=== PATIENT | female | born 1970 | race African-American/Black ===

== ENCOUNTER 2016-11-07 00:41 | Emergency (ER) | payer MEDICAID ==
[~2016-11-07] VITALS: Ht 160 cm; Wt 99.0 kg
[~2016-11-07 00:41] MED LIST: ALD50 PO; AMLO5TAB4 PO; LISI-604 PO
[2016-11-07] MEDS ORDERED: ASPIRIN 81MG TABLET PO STA (01:36)
[2016-11-07] MEDS ORDERED: ONDANSETRON HCL 4MG/2ML VIAL IV STA (01:36)
[2016-11-07] MEDS ORDERED: MORPHINE SULFATE 4 MG/ML CPJ (NOT FOR IM USE) IV STA (01:36)
[2016-11-07 01:51] LABS: BASOPHILS % 1.4 % (0.0-2.0); EOSINOPHILS % 1.2 % (0.0-5.0); HEMATOCRIT. 32.1 % (36.0-48.0); HEMOGLOBIN. 10.7 g/dL (12.0-16.0); LYMPHOCYTES % 32.3 % (20.0-50.0); MEAN CORPUSCULAR HEMOGLOBIN 32.8 pg (28.0-32.0); MEAN PLATELET VOLUME 7.7 fl (7.4-10.4); MONOCYTES % 6.1 % (2.0-8.0); PLATELET 247 x1000/uL (130-400); RED BLOOD CELL COUNT 3.27 mill/uL (4.2-5.4); RED CELL DISTRIBUTION WIDTH 16.8 % (11.6-14.6)
[2016-11-07 02:03] LABS: CARBON DIOXIDE 26 mEq/L (21-32); CHLORIDE 103 mEq/L (98-107); TROPONIN I < 0.02 ng/mL (0.00-0.04)
[2016-11-07 05:47] VITALS: BP 164/66
== END 2016-11-07 05:50 | disposition home or self-care (01) ==
LOC: ER 00:41
DX: R07.89 Other chest pain (principal); I11.0 Hypertensive heart disease with heart failure; I50.9 Heart failure, unspecified; Z79.899 Other long term (current) drug therapy
CPT/HCPCS: 36415; 71010; 80053; 84484; 85025; 85379; 93005; 96374; 96375; 99285; J2270; J2405; Z7610

== ENCOUNTER 2018-11-12 14:23 | Emergency (ER) | payer MEDICAID | END 2018-11-12 18:00 | disposition left against medical advice (07) | LOC: ER 17:15 | DX: Z53.21 Procedure and treatment not carried out due to patient leaving prior to being seen by health care provider (principal) ==

== ENCOUNTER 2019-04-05 01:26 | Emergency (ER) | payer MEDICAID ==
[~2019-04-05] VITALS: Ht 162.6 cm; Wt 91.0 kg
[2019-04-05] MEDS ORDERED: FAMOTIDINE 20MG/2ML VIAL IV STA (02:04)
[2019-04-05] MEDS ORDERED: SODIUM CHLORIDE 0.9% 1,000 ML IV ONE (02:04)
[2019-04-05] MEDS ORDERED: ONDANSETRON HCL 4MG/2ML INJ IV STA (02:04)
[2019-04-05] MEDS ORDERED: MORPHINE SULFATE 4 MG/ML CPJ (NOT FOR IM USE) IV STA (02:04)
[2019-04-05 02:57] LABS: BASOPHILS % 1.1 % (0.0-2.0); EOSINOPHILS % 0.5 % (0.0-5.0); HEMATOCRIT. 37.3 % (36.0-48.0); HEMOGLOBIN. 12.6 g/dL (12.0-16.0); LYMPHOCYTES % 26.3 % (20.0-50.0); MEAN CORPUSCULAR HEMOGLOBIN 35.5 pg (28.0-32.0); MEAN CORPUSCULAR VOLUME 104.9 fL (81.0-99.0); MEAN PLATELET VOLUME 7.8 fl (7.4-10.4); NEUTROPHILS % 66.1 % (40.0-76.0); PLATELET 233 x1000/uL (130-400); RED BLOOD CELL COUNT 3.56 mill/uL (4.2-5.4); RED CELL DISTRIBUTION WIDTH 13.6 % (11.6-14.6)
[2019-04-05 03:04] LABS: CHLORIDE 102 mEq/L (98-107)
[2019-04-05] MEDS ORDERED: IOHEXOL-300 100 ML BOTTLE ONE (03:42)
[2019-04-05 05:08] VITALS: BP 106/66
== END 2019-04-05 05:12 | disposition home or self-care (01) ==
LOC: ER 01:26
DX: K52.9 Noninfective gastroenteritis and colitis, unspecified (principal); I11.0 Hypertensive heart disease with heart failure; I50.9 Heart failure, unspecified; Z79.899 Other long term (current) drug therapy
CPT/HCPCS: 36415; 71045; 74177; 80053; 83605; 83690; 85025; 93005; 96361; 96374; 96375; 99284; J2270; J2405; J3490; J7030; Q9967

== ENCOUNTER 2020-09-27 23:37 | Emergency (ER) | payer MEDICAID, OTHER ==
[~2020-09-27] VITALS: Ht 167.6 cm; Wt 75.0 kg
[~2020-09-27 23:37] MED LIST changes: -ALD50 PO; +ALLO100T MT; -AMLO5TAB4 PO; +ASPI-1497 PO; +CELE200C PO; +FURO40TA5 PO; +HYDR12.54 MT; +LEVO500T89 MT; -LISI-604 PO
[2020-09-28 01:07] LABS: CHLORIDE 97 mEq/L (98-107)
[2020-09-28 01:23] LABS: ETHANOL BLOOD 456 mg/dL
[2020-09-28 01:24] LABS: CLARITY URINE CLOUDY (CLEAR); COLOR URINE YELLOW (YELLOW); KETONES URINE TRACE (NEGATIVE); LEUKOCYTE ESTERASE URINE 3+ (NEGATIVE); NITRITE URINE NEGATIVE (NEGATIVE); OCCULT BLOOD URINE 1+ (NEGATIVE); PROTEIN URINE NEGATIVE (NEGATIVE); SPECIFIC GRAVITY URINE 1.009 (1.005-1.030)
[2020-09-28 01:33] LABS: *AMPHETAMINES SCREEN URINE NEGATIVE (NEGATIVE)
[2020-09-28 01:34] LABS: *BARBITURATES SCREEN URINE NEGATIVE (NEGATIVE); *BENZODIAZEPINES SCREEN URINE NEGATIVE (NEGATIVE); *COCAINE SCREEN URINE NEGATIVE (NEGATIVE); CANNABINOID URINE SCREEN NEGATIVE (NEGATIVE); METHADONE URINE SCREEN NEGATIVE (NEGATIVE); PHENCYCLIDINE URINE SCREEN NEGATIVE (NEGATIVE)
[2020-09-28 01:35] LABS: OPIATES URINE SCREEN NEGATIVE (NEGATIVE)
[2020-09-28 01:44] LABS: BASOPHILS % 2.2 % (0.0-2.0); EOSINOPHILS % 0.4 % (0.0-5.0); HEMATOCRIT. 28.2 % (36.0-48.0); HEMOGLOBIN. 9.4 g/dL (12.0-16.0); LYMPHOCYTES % 36.9 % (20.0-50.0); MEAN CORPUSCULAR HEMOGLOBIN 34.2 pg (28.0-32.0); MEAN CORPUSCULAR VOLUME 102.1 fL (81.0-99.0); MONOCYTES % 7.2 % (2.0-8.0); NEUTROPHILS % 53.3 % (40.0-76.0); PLATELET 133 x1000/uL (130-400); RED BLOOD CELL COUNT 2.76 mill/uL (4.2-5.4); RED CELL DISTRIBUTION WIDTH 22.2 % (11.6-14.6)
[2020-09-28 01:56] LABS: PLATELET ESTIMATE NORMAL
[2020-09-28] MEDS ORDERED: CEFTRIAXONE 1 G PREMIX 50 ML IV SCH (02:15)
[2020-09-28 03:15] VITALS: BP 121/74
== END 2020-09-28 03:30 | disposition home or self-care (01) ==
LOC: ER 23:37
DX: I11.0 Hypertensive heart disease with heart failure (principal); I50.9 Heart failure, unspecified; F10.129 Alcohol abuse with intoxication, unspecified; Z79.899 Other long term (current) drug therapy; Z79.82 Long term (current) use of aspirin; Y90.8 Blood alcohol level of 240 mg/100 ml or more
CPT/HCPCS: 36415; 70450; 71045; 80053; 80305; 80320; 81003; 82962; 83690; 84484; 85025; 87086; 93005; 96374; 99285; J0696; Z7610; G0480

== ENCOUNTER 2020-10-09 01:04 | Inpatient (IN) | payer MEDICAID, OTHER ==
[~2020-10-09] VITALS: Ht 160 cm; Wt 80.5 kg
[2020-10-09] MEDS ORDERED: MORPHINE SULFATE 4 MG/ML CPJ (NOT FOR IM USE) IV STA (03:13)
[2020-10-09] MEDS ORDERED: ONDANSETRON HCL 4MG/2ML INJ IV STA (03:13)
[2020-10-09] MEDS ORDERED: ASPIRIN 81MG TABLET PO ONE (03:15)
[2020-10-09] MEDS ORDERED: NITROGLYCERIN OINT 1GM/INCH UDPKT TD ONE (03:15)
[2020-10-09] MEDS ORDERED: FUROSEMIDE 40MG/4ML VIAL IV ONE (03:15)
[2020-10-09 03:33] LABS: EOSINOPHILS % 0.4 % (0.0-5.0); HEMATOCRIT. 24.2 % (36.0-48.0); LYMPHOCYTES % 14.5 % (20.0-50.0); MEAN CORPUSCULAR HEMOGLOBIN 34.5 pg (28.0-32.0); MEAN CORPUSCULAR VOLUME 105.1 fL (81.0-99.0); MEAN PLATELET VOLUME 8.2 fl (7.4-10.4); MONOCYTES % 14.9 % (2.0-8.0); NEUTROPHILS % 69.2 % (40.0-76.0); PLATELET 200 x1000/uL (130-400); RED CELL DISTRIBUTION WIDTH 22.4 % (11.6-14.6)
[2020-10-09 03:37] LABS: CHLORIDE 102 mEq/L (98-107)
[2020-10-09] MEDS ORDERED: MORPHINE SULFATE 2 MG/ML CPJ (NOT FOR IM USE) IV PRN (12:45)
[2020-10-09] MEDS ORDERED: ONDANSETRON HCL 4MG/2ML INJ IV PRN (18:15)
[2020-10-09] MEDS ORDERED: TRAMADOL 50MG TABLET PO PRN (18:15)
[2020-10-09] MEDS: FUROSEMIDE 40MG/4ML VIAL IVP SCH (19:11)
[2020-10-09 21:31] VITALS: BP 129/87
[2020-10-09] MEDS ORDERED: FOLI-43 PO (22:37)
[2020-10-09] MEDS ORDERED: LISI20TA31 PO (22:40)
[2020-10-09] MEDS ORDERED: *PATIENT'S OWN MEDICATION STORAGE XX SCH (23:45)
[2020-10-10] VITALS: BP 121/79
[2020-10-10 04:00] VITALS: BP 119/81
[2020-10-10 08:00] VITALS: BP 121/81
[2020-10-10] MEDS: FUROSEMIDE 40MG/4ML VIAL IVP SCH (08:43)
[2020-10-10 12:00] VITALS: BP 129/74
[2020-10-10] MEDS ORDERED: POTASSIUM CHLORIDE 20MEQ TABLET SR PO NR (12:00)
[2020-10-10] MEDS: METOPROLOL TARTRATE 25MG TABLET PO SCH ×2 (12:18→16:55)
[2020-10-10] MEDS: ACETAMINOPHEN 325MG TABLET PO PRN (12:18)
[2020-10-10] MEDS: CEFTRIAXONE 1,000 MG in DEXTROSE 5% WATER 50 ML IV SCH (13:38)
[2020-10-10 14:27] LABS: BASOPHILS % 0.7 % (0.0-2.0); EOSINOPHILS % 0.2 % (0.0-5.0); HEMATOCRIT. 22.2 % (36.0-48.0); HEMOGLOBIN. 7.4 g/dL (12.0-16.0); LYMPHOCYTES % 10.7 % (20.0-50.0); MEAN CORPUSCULAR HEMOGLOBIN 34.7 pg (28.0-32.0); MEAN PLATELET VOLUME 8.4 fl (7.4-10.4); MONOCYTES % 14.5 % (2.0-8.0); NEUTROPHILS % 73.9 % (40.0-76.0); PLATELET 229 x1000/uL (130-400); RED BLOOD CELL COUNT 2.14 mill/uL (4.2-5.4); RED CELL DISTRIBUTION WIDTH 21.4 % (11.6-14.6)
[2020-10-10 16:00] VITALS: BP 97/65
[2020-10-10] MEDS ORDERED: CALCIUM GLUCONATE 1GM PREMIX 50 ML IV NR (17:00)
[2020-10-10 20:00] VITALS: BP 113/81
[2020-10-10] MEDS: HYDROCODONE/ACETAMINOPHEN 10/325MG TABLET PO PRN (20:43)
[2020-10-10] MEDS ORDERED: ZOLPIDEM TARTRATE 5MG TABLET PO PRN (21:00)
[2020-10-10] MEDS: LORAZEPAM 2MG/ML CPJ IV PRN (22:07)
[2020-10-11] VITALS: BP 115/78
[2020-10-11 04:00] VITALS: BP 124/79
[2020-10-11] MEDS: LORAZEPAM 2MG/ML CPJ IV PRN (04:02)
[2020-10-11 08:00] VITALS: BP 109/73
[2020-10-11] MEDS: METOPROLOL TARTRATE 25MG TABLET PO SCH ×2 (09:00→16:55)
[2020-10-11] MEDS: FUROSEMIDE 40MG/4ML VIAL IVP SCH (10:37)
[2020-10-11] MEDS: ACETAMINOPHEN 325MG TABLET PO PRN (10:37)
[2020-10-11 12:00] VITALS: BP 109/70
[2020-10-11] MEDS: CEFTRIAXONE 1,000 MG in DEXTROSE 5% WATER 50 ML IV SCH (14:22)
[2020-10-11 15:59] LABS: BASOPHILS % 0.9 % (0.0-2.0); EOSINOPHILS % 0.1 % (0.0-5.0); HEMATOCRIT. 25.9 % (36.0-48.0); HEMOGLOBIN. 8.6 g/dL (12.0-16.0); LYMPHOCYTES % 12.4 % (20.0-50.0); MEAN CORPUSCULAR HEMOGLOBIN 34.9 pg (28.0-32.0); MEAN CORPUSCULAR VOLUME 104.9 fL (81.0-99.0); MEAN PLATELET VOLUME 8.3 fl (7.4-10.4); MONOCYTES % 13.2 % (2.0-8.0); NEUTROPHILS % 73.4 % (40.0-76.0); PLATELET 280 x1000/uL (130-400); RED BLOOD CELL COUNT 2.47 mill/uL (4.2-5.4); RED CELL DISTRIBUTION WIDTH 21.3 % (11.6-14.6)
[2020-10-11 16:00] VITALS: BP 121/77
[2020-10-11] MEDS ORDERED: CALCIUM GLUCONATE 1GM PREMIX 50 ML IV ONE (18:00)
[2020-10-11 20:00] VITALS: BP 119/76
[2020-10-12] VITALS: BP 103/51
[2020-10-12] MEDS: HYDROCODONE/ACETAMINOPHEN 10/325MG TABLET PO PRN (02:40)
[2020-10-12 02:44] LABS: CLARITY URINE CLOUDY (CLEAR); COLOR URINE YELLOW (YELLOW); KETONES URINE TRACE (NEGATIVE); LEUKOCYTE ESTERASE URINE 3+ (NEGATIVE); NITRITE URINE NEGATIVE (NEGATIVE); OCCULT BLOOD URINE TRACE (NEGATIVE); PROTEIN URINE TRACE (NEGATIVE); SPECIFIC GRAVITY URINE 1.013 (1.005-1.030)
[2020-10-12 03:02] LABS: PHENCYCLIDINE URINE SCREEN NEGATIVE (NEGATIVE)
[2020-10-12 03:03] LABS: *AMPHETAMINES SCREEN URINE NEGATIVE (NEGATIVE); *BARBITURATES SCREEN URINE NEGATIVE (NEGATIVE); *COCAINE SCREEN URINE NEGATIVE (NEGATIVE); CANNABINOID URINE SCREEN NEGATIVE (NEGATIVE); METHADONE URINE SCREEN NEGATIVE (NEGATIVE); OPIATES URINE SCREEN PRESUMTIVE POSITIVE (NEGATIVE)
[2020-10-12 03:14] LABS: *BENZODIAZEPINES SCREEN URINE NEGATIVE (NEGATIVE)
[2020-10-12 04:00] VITALS: BP 117/71
[2020-10-12 08:00] VITALS: BP 115/73
[2020-10-12] MEDS: METOPROLOL TARTRATE 25MG TABLET PO SCH ×2 (09:17→18:57)
[2020-10-12] MEDS: POTASSIUM CHLORIDE 20MEQ TABLET SR PO SCH (09:17)
[2020-10-12] MEDS: FUROSEMIDE 40MG/4ML VIAL IVP SCH (09:17)
[2020-10-12 10:47] LABS: BASOPHILS % 0.8 % (0.0-2.0); EOSINOPHILS % 0.4 % (0.0-5.0); LYMPHOCYTES % 12.6 % (20.0-50.0); MEAN CORPUSCULAR HEMOGLOBIN 34.7 pg (28.0-32.0); MEAN CORPUSCULAR VOLUME 104.6 fL (81.0-99.0); MONOCYTES % 12.1 % (2.0-8.0); NEUTROPHILS % 74.1 % (40.0-76.0); PLATELET 315 x1000/uL (130-400); RED BLOOD CELL COUNT 2.11 mill/uL (4.2-5.4); RED CELL DISTRIBUTION WIDTH 21.3 % (11.6-14.6)
[2020-10-12 10:54] LABS: HEMOGLOBIN. 7.3 g/dL (12.0-16.0)
[2020-10-12 10:55] LABS: HEMATOCRIT. 22.1 % (36.0-48.0)
[2020-10-12] MEDS ORDERED: CALCIUM GLUCONATE 1GM PREMIX 50 ML IV ONE (11:15)
[2020-10-12 12:00] VITALS: BP 101/85
[2020-10-12] MEDS: CEFTRIAXONE 1,000 MG in DEXTROSE 5% WATER 50 ML IV SCH (14:15)
[2020-10-12 15:35] LABS: TOTAL IRON BINDING CAPACITY 154 ug/dL (250-450)
[2020-10-12 16:00] VITALS: BP 99/85
[2020-10-12] MEDS ORDERED: FOLIC ACID 1 MG, THIAMINE HCL 100 MG, MVI, ADULT NO.1 10 ML in DEXTROSE 5% WATER 1,000 ML IV ONE (19:45)
[2020-10-12] MEDS ORDERED: FOLIC ACID 1 MG, THIAMINE HCL 100 MG, MVI, ADULT NO.1 10 ML in DEXTROSE 5% WATER 1,000 ML IV NR (21:00)
[2020-10-12] MEDS ORDERED: LORAZEPAM 2MG/ML CPJ IV PRN (22:15)
[2020-10-13] VITALS (7 sets, daily range): BP systolic 89–114; BP diastolic 49–79
[2020-10-13] MEDS: FUROSEMIDE 40MG/4ML VIAL IVP SCH (09:38)
[2020-10-13] MEDS: THIAMINE HCL 100MG TABLET PO SCH (09:39)
[2020-10-13] MEDS: FOLIC ACID/VITAMIN B COMP W-C TABLET PO SCH (09:42)
[2020-10-13] MEDS: METOPROLOL TARTRATE 25MG TABLET PO SCH ×2 (09:43→17:00)
[2020-10-13] MEDS: POTASSIUM CHLORIDE 20MEQ TABLET SR PO SCH (09:45)
[2020-10-13 12:17] LABS: BASOPHILS % 0.9 % (0.0-2.0); EOSINOPHILS % 0.6 % (0.0-5.0); HEMATOCRIT. 21.4 % (36.0-48.0); HEMOGLOBIN. 7.2 g/dL (12.0-16.0); LYMPHOCYTES % 17.6 % (20.0-50.0); MEAN CORPUSCULAR HEMOGLOBIN 34.3 pg (28.0-32.0); MEAN CORPUSCULAR VOLUME 102.5 fL (81.0-99.0); MEAN PLATELET VOLUME 8.5 fl (7.4-10.4); MONOCYTES % 10.4 % (2.0-8.0); NEUTROPHILS % 70.5 % (40.0-76.0); PLATELET 365 x1000/uL (130-400); RED BLOOD CELL COUNT 2.09 mill/uL (4.2-5.4)
[2020-10-13] MEDS: FERROUS SULFATE 325MG TABLET PO SCH ×2 (12:45→18:26)
[2020-10-13] MEDS: HYDROCODONE/ACETAMINOPHEN 10/325MG TABLET PO PRN (12:46)
[2020-10-13] MEDS: CHLORDIAZEPOXIDE 25MG CAPSULE PO SCH ×2 (13:09→21:05)
[2020-10-13] MEDS: CEFTRIAXONE 1,000 MG in DEXTROSE 5% WATER 50 ML IV SCH (13:37)
[2020-10-13] MEDS ORDERED: CALCIUM GLUCONATE 1GM PREMIX 50 ML IV NR (16:00)
[2020-10-13] MEDS ORDERED: LORAZEPAM 2MG/ML CPJ IV PRN (18:30)
[2020-10-13 21:12] LABS: FOLIC ACID (FOLATE) SERUM > 20.00 ng/mL (>5.38)
[2020-10-13] MEDS: ACETAMINOPHEN 325MG TABLET PO PRN (21:17)
[2020-10-13 21:20] LABS: VITAMIN B12 SERUM 378 pg/mL (211-911)
[2020-10-14] VITALS: BP_SYST 111; BP_SYST 117; BP_DIAS 75; BP_DIAS 80
[2020-10-14 04:00] VITALS: BP 118/76
[2020-10-14] MEDS: CHLORDIAZEPOXIDE 25MG CAPSULE PO SCH ×3 (05:01→21:21)
[2020-10-14 06:01] LABS: BASOPHILS % 1.5 % (0.0-2.0); HEMOGLOBIN. 7.4 g/dL (12.0-16.0); MEAN CORPUSCULAR HEMOGLOBIN 33.6 pg (28.0-32.0); MEAN CORPUSCULAR VOLUME 104.6 fL (81.0-99.0); MEAN PLATELET VOLUME 8.5 fl (7.4-10.4); MONOCYTES % 10.4 % (2.0-8.0); NEUTROPHILS % 68.1 % (40.0-76.0); PLATELET 322 x1000/uL (130-400); RED BLOOD CELL COUNT 2.19 mill/uL (4.2-5.4)
[2020-10-14 06:04] LABS: INR 1.2; PROTHROMBIN TIME 12.4 sec (9.6-11.0)
[2020-10-14] MEDS ORDERED: CALCIUM GLUCONATE 1GM PREMIX 50 ML IV ONE ×5 (07:45→15:00)
[2020-10-14 08:00] VITALS: BP 105/65
[2020-10-14] MEDS ORDERED: MAGNESIUM 4 G PREMIX 100 ML IV ONE (09:00)
[2020-10-14] MEDS: METOPROLOL TARTRATE 25MG TABLET PO SCH ×2 (09:00→16:46)
[2020-10-14] MEDS: DOCUSATE SODIUM SUGAR FREE 100MG/10ML UDC PO SCH (09:05)
[2020-10-14] MEDS: FERROUS SULFATE 325MG TABLET PO SCH ×3 (09:06→17:40)
[2020-10-14] MEDS: FOLIC ACID/VITAMIN B COMP W-C TABLET PO SCH (09:06)
[2020-10-14] MEDS: THIAMINE HCL 100MG TABLET PO SCH (09:06)
[2020-10-14] MEDS: POTASSIUM CHLORIDE 20MEQ TABLET SR PO SCH (09:08)
[2020-10-14 12:00] VITALS: BP 108/82
[2020-10-14] MEDS: ACETAMINOPHEN 325MG TABLET PO PRN (12:34)
[2020-10-14] MEDS: CEFTRIAXONE 1,000 MG in DEXTROSE 5% WATER 50 ML IV SCH (14:14)
[2020-10-14 16:00] VITALS: BP 93/62
[2020-10-14] MEDS: MEROPENEM 1,000 MG in SODIUM CHLORIDE 0.9% 100 ML IV SCH (18:35)
[2020-10-14 20:00] VITALS: BP 124/79
[2020-10-14 20:54] LABS: PLATELET ESTIMATE NORMAL
[2020-10-14] MEDS: HYDROCODONE/ACETAMINOPHEN 10/325MG TABLET PO PRN (21:22)
[2020-10-15] VITALS: BP 117/80
[2020-10-15 04:00] VITALS: BP 128/83
[2020-10-15] MEDS: MEROPENEM 1,000 MG in SODIUM CHLORIDE 0.9% 100 ML IV SCH ×2 (05:04→17:38)
[2020-10-15] MEDS: CHLORDIAZEPOXIDE 25MG CAPSULE PO SCH ×3 (05:04→20:50)
[2020-10-15 05:33] LABS: BASOPHILS % 1.3 % (0.0-2.0); EOSINOPHILS % 1.9 % (0.0-5.0); HEMATOCRIT. 22.7 % (36.0-48.0); HEMOGLOBIN. 7.5 g/dL (12.0-16.0); MEAN CORPUSCULAR HEMOGLOBIN 34.4 pg (28.0-32.0); MEAN CORPUSCULAR VOLUME 103.7 fL (81.0-99.0); MEAN PLATELET VOLUME 8.4 fl (7.4-10.4); MONOCYTES % 10.1 % (2.0-8.0); NEUTROPHILS % 74.7 % (40.0-76.0); PLATELET 377 x1000/uL (130-400); RED BLOOD CELL COUNT 2.19 mill/uL (4.2-5.4); RED CELL DISTRIBUTION WIDTH 22.2 % (11.6-14.6)
[2020-10-15 08:00] VITALS: BP 92/59
[2020-10-15] MEDS ORDERED: CALCIUM GLUCONATE 2,000 MG in DEXT 5% WATER 100 ML IV SCH (08:00)
[2020-10-15] MEDS: METOPROLOL TARTRATE 25MG TABLET PO SCH ×2 (08:11→17:37)
[2020-10-15] MEDS: FERROUS SULFATE 325MG TABLET PO SCH ×3 (08:15→17:37)
[2020-10-15] MEDS: DOCUSATE SODIUM SUGAR FREE 100MG/10ML UDC PO SCH (08:15)
[2020-10-15] MEDS: FOLIC ACID/VITAMIN B COMP W-C TABLET PO SCH (08:15)
[2020-10-15] MEDS: THIAMINE HCL 100MG TABLET PO SCH (08:15)
[2020-10-15] MEDS: POTASSIUM CHLORIDE 20MEQ TABLET SR PO SCH (08:16)
[2020-10-15] MEDS ORDERED: POTASSIUM CHLORIDE 20MEQ TABLET SR PO NR (09:45)
[2020-10-15 11:53] VITALS: BP 131/87
[2020-10-15 16:00] VITALS: BP 127/82
[2020-10-15 20:00] VITALS: BP 112/69
[2020-10-16] MEDS: MEROPENEM 1,000 MG in SODIUM CHLORIDE 0.9% 100 ML IV SCH ×2 (05:47→17:33)
[2020-10-16] MEDS: FERROUS SULFATE 325MG TABLET PO SCH ×3 (05:47→17:48)
[2020-10-16] MEDS: CHLORDIAZEPOXIDE 25MG CAPSULE PO SCH ×2 (05:47→13:17)
[2020-10-16 06:14] LABS: HEMATOCRIT. 23.6 % (36.0-48.0); HEMOGLOBIN. 7.3 g/dL (12.0-16.0); MEAN CORPUSCULAR HEMOGLOBIN 32.7 pg (28.0-32.0); MEAN CORPUSCULAR VOLUME 104.9 fL (81.0-99.0); PLATELET 461 x1000/uL (130-400); RED BLOOD CELL COUNT 2.25 mill/uL (4.2-5.4); RED CELL DISTRIBUTION WIDTH 22.1 % (11.6-14.6)
[2020-10-16 08:00] VITALS: BP 123/82
[2020-10-16] MEDS: THIAMINE HCL 100MG TABLET PO SCH (10:14)
[2020-10-16] MEDS: FOLIC ACID/VITAMIN B COMP W-C TABLET PO SCH (10:14)
[2020-10-16] MEDS: DOCUSATE SODIUM SUGAR FREE 100MG/10ML UDC PO SCH (10:14)
[2020-10-16] MEDS: POTASSIUM CHLORIDE 20MEQ TABLET SR PO SCH (10:14)
[2020-10-16 12:00] VITALS: BP 107/74
[2020-10-16] MEDS: METOPROLOL TARTRATE 25MG TABLET PO SCH ×2 (13:17→17:48)
[2020-10-16 14:11] LABS: PLATELET ESTIMATE INCREASED
[2020-10-16 16:00] VITALS: BP 120/77
[2020-10-16 20:00] VITALS: BP 106/64
[2020-10-16 20:45] VITALS: BP 106/64
== END 2020-10-16 21:40 | DRG 720 ==
LOC: ER 01:04 → 5WST 04:29 → EDBEDREQTM 04:37 → EDBEDREQ 04:37 → ENRESERV 19:39 → 5WST 10-12 22:34
PROVIDERS: ADMIT Internal Medicine; ATTEND Internal Medicine
DX: A41.9 Sepsis, unspecified organism (principal); N17.0 Acute kidney failure with tubular necrosis; I50.43 Acute on chronic combined systolic (congestive) and diastolic (congestive) heart failure; F10.131 Alcohol abuse with withdrawal delirium; E44.0 Moderate protein-calorie malnutrition; I27.20 Pulmonary hypertension, unspecified; E83.51 Hypocalcemia; E87.1 Hypo-osmolality and hyponatremia; D64.9 Anemia, unspecified; E87.6 Hypokalemia; I11.0 Hypertensive heart disease with heart failure; Z20.822 Contact with and (suspected) exposure to COVID-19; I34.0 Nonrheumatic mitral (valve) insufficiency; I36.1 Nonrheumatic tricuspid (valve) insufficiency; N39.0 Urinary tract infection, site not specified; Y90.9 Presence of alcohol in blood, level not specified; K76.0 Fatty (change of) liver, not elsewhere classified; M94.0 Chondrocostal junction syndrome [Tietze]; Z79.82 Long term (current) use of aspirin; Z79.899 Other long term (current) drug therapy; Z68.31 Body mass index [BMI] 31.0-31.9, adult
CPT/HCPCS: 36415; 71045; 73562; 76700; 80048; 80053; 80076; 80305; 81003; 82140; 82248; 82270; 82607; 82728; 82746; 83540; 83550; 83735; 83880; 84145; 84484; 85025; 85044; 86850; 86900; 86920; 87077; 87186; 87426; 93005; 93970; 97162; 97166; 97530; 99285; A6261; J0610; J0696; J1940; J2060; J2185; J2270; J2405; J3411; J3475; J3490; J7040; J7050; J7060; J7070

== ENCOUNTER 2020-10-26 07:58 | Inpatient (IN) | payer MEDICAID ==
[~2020-10-26] VITALS: Ht 172.7 cm; Wt 84.8 kg
[~2020-10-26 07:58] MED LIST changes: +FOLI-43 PO; +LISI20TA31 PO
[2020-10-26] MEDS ORDERED: NITROGLYCERIN OINT 1GM/INCH UDPKT TD ONE (09:00)
[2020-10-26] MEDS ORDERED: FUROSEMIDE 40MG/4ML VIAL IV ONE (09:00)
[2020-10-26] MEDS ORDERED: ASPIRIN 81MG TABLET PO ONE (09:00)
[2020-10-26 09:07] LABS: CHLORIDE 109 mEq/L (98-107)
[2020-10-26 09:08] LABS: BASOPHILS % 1.1 % (0.0-2.0); EOSINOPHILS % 1.9 % (0.0-5.0); HEMATOCRIT. 27.6 % (36.0-48.0); LYMPHOCYTES % 26.8 % (20.0-50.0); MEAN CORPUSCULAR HEMOGLOBIN 34.1 pg (28.0-32.0); MEAN CORPUSCULAR VOLUME 104.7 fL (81.0-99.0); MONOCYTES % 6.6 % (2.0-8.0); NEUTROPHILS % 63.6 % (40.0-76.0); PLATELET 622 x1000/uL (130-400); RED BLOOD CELL COUNT 2.64 mill/uL (4.2-5.4); RED CELL DISTRIBUTION WIDTH 21.2 % (11.6-14.6)
[2020-10-26 09:15] LABS: BG BASE EXCESS -9.3 mmol/L (-2.0-2.0); BG CARBOXYHEMOGLOBIN 0.3 % (0.5-1.5); BG DEOXYHEMOGLOBIN 15.2 % (0.0-5.0); BG FRACTION INSPIRED OXYGEN 99.8; BG HCO3 ACT 18.7 mmol/L (22.0-26.0); BG METHEMOGLOBIN 0.6 % (0.0-1.5); BG OXYGEN SATURATION 84.7 % (92.0-98.5); BG OXYHEMOGLOBIN 83.9 % (94.0-97.0); BG PH 7.183 (7.350-7.450); BG PO2 66.6 mmHg (75.0-100.0); BG SAMPLE SITE LEFT RADIAL; BG TOTAL HEMOGLOBIN 9.5 g/dL (12.0-18.0); BG VENT MODE MASK - NRB
[2020-10-26 10:10] LABS: BG BASE EXCESS -8.5 mmol/L (-2.0-2.0); BG CARBOXYHEMOGLOBIN 0.7 % (0.5-1.5); BG DEOXYHEMOGLOBIN 4.8 % (0.0-5.0); BG FRACTION INSPIRED OXYGEN 100; BG HCO3 ACT 17.4 mmol/L (22.0-26.0); BG METHEMOGLOBIN 0.4 % (0.0-1.5); BG OXYGEN SATURATION 95.1 % (92.0-98.5); BG OXYHEMOGLOBIN 94.1 % (94.0-97.0); BG PCO2 37.3 mmHg (35.0-45.0); BG PH 7.287 (7.350-7.450); BG SAMPLE SITE LEFT RADIAL; BG TOTAL HEMOGLOBIN 8.8 g/dL (12.0-18.0); BG VENT MODE MASK - BIPAP
[2020-10-26] MEDS ORDERED: VANCOMYCIN 1 G PREMIX 200 ML IV ONE (10:45)
[2020-10-26] MEDS ORDERED: PIPERACILLIN/TAZ 3.375G PREMIX 50 ML IV ONE (10:45)
[2020-10-26 11:25] LABS: CLARITY URINE CLOUDY (CLEAR); COLOR URINE YELLOW (YELLOW); KETONES URINE NEGATIVE (NEGATIVE); LEUKOCYTE ESTERASE URINE 3+ (NEGATIVE); NITRITE URINE NEGATIVE (NEGATIVE); OCCULT BLOOD URINE TRACE (NEGATIVE); PH URINE 5.5 (4.5-8.0); PROTEIN URINE TRACE (NEGATIVE); SPECIFIC GRAVITY URINE 1.011 (1.005-1.030); UROBILINOGEN URINE 0.2 E.U./dL (0.2-1.0)
[2020-10-26] MEDS ORDERED: ONDANSETRON HCL 4MG/2ML INJ IV PRN (13:15)
[2020-10-26] MEDS ORDERED: ALBUTEROL 6.7GM HFA INHALER ORI PRN (14:45)
[2020-10-26 16:25] VITALS: BP 144/96
[2020-10-26] MEDS ORDERED: PIPERACILLIN/TAZOBACTAM 3.375 G in DEXT 5% WATER 100 ML IV SCH (17:00)
[2020-10-26] MEDS: FERROUS SULFATE 325MG TABLET PO SCH (17:39)
[2020-10-26] MEDS: FUROSEMIDE 40MG/4ML VIAL IVP SCH (17:39)
[2020-10-26] MEDS: DOCUSATE SODIUM 100MG CAPSULE PO SCH (17:39)
[2020-10-26 20:00] VITALS: BP 149/90
[2020-10-27] VITALS (28 sets, daily range): BP systolic 107–145; BP diastolic 71–105
[2020-10-27] MEDS: PIPERACILLIN/TAZOBACTAM 3.375 G in DEXT 5% WATER 100 ML IV SCH ×4 (01:50→17:49)
[2020-10-27] MEDS: ACETAMINOPHEN 325MG TABLET PO PRN ×2 (04:11→19:50)
[2020-10-27] MEDS: FUROSEMIDE 40MG/4ML VIAL IVP SCH ×2 (06:22→17:48)
[2020-10-27 06:37] LABS: BASOPHILS % 0.6 % (0.0-2.0); EOSINOPHILS % 0.7 % (0.0-5.0); LYMPHOCYTES % 12.1 % (20.0-50.0); MEAN CORPUSCULAR HEMOGLOBIN 33.8 pg (28.0-32.0); MEAN CORPUSCULAR VOLUME 101.5 fL (81.0-99.0); MEAN PLATELET VOLUME 8.2 fl (7.4-10.4); NEUTROPHILS % 80.6 % (40.0-76.0); PLATELET 379 x1000/uL (130-400); RED BLOOD CELL COUNT 1.95 mill/uL (4.2-5.4); RED CELL DISTRIBUTION WIDTH 21.2 % (11.6-14.6)
[2020-10-27 06:52] LABS: HEMATOCRIT. 19.8 % (36.0-48.0); HEMOGLOBIN. 6.6 g/dL (12.0-16.0)
[2020-10-27 07:15] LABS: *AMPHETAMINES SCREEN URINE NEGATIVE (NEGATIVE); *BARBITURATES SCREEN URINE NEGATIVE (NEGATIVE); *BENZODIAZEPINES SCREEN URINE PRESUMTIVE POSITIVE (NEGATIVE); *COCAINE SCREEN URINE NEGATIVE (NEGATIVE)
[2020-10-27 07:16] LABS: CANNABINOID URINE SCREEN NEGATIVE (NEGATIVE); METHADONE URINE SCREEN NEGATIVE (NEGATIVE); OPIATES URINE SCREEN NEGATIVE (NEGATIVE); PHENCYCLIDINE URINE SCREEN NEGATIVE (NEGATIVE)
[2020-10-27] MEDS: FERROUS SULFATE 325MG TABLET PO SCH ×3 (08:34→17:55)
[2020-10-27] MEDS: DOCUSATE SODIUM 100MG CAPSULE PO SCH ×2 (08:34→17:00)
[2020-10-27] MEDS: MULTIVITAMINS,THER W-MINERALS TABLET PO SCH (08:34)
[2020-10-27] MEDS: FOLIC ACID 1MG TABLET PO SCH (08:34)
[2020-10-27] MEDS: THIAMINE HCL 100MG TABLET PO SCH (08:34)
[2020-10-27] MEDS ORDERED: IPRATROPIUM/ALBUTEROL 0.5-3(2.5)MG/3ML NEB HHN PRN (10:15)
[2020-10-27] MEDS: OMEPRAZOLE 20MG CAPSULE EXTENDED RELEASE PO SCH (10:57)
[2020-10-27 15:24] LABS: BG BASE EXCESS -1.5 mmol/L (-2.0-2.0); BG CARBOXYHEMOGLOBIN 0.4 % (0.5-1.5); BG DEOXYHEMOGLOBIN 7.8 % (0.0-5.0); BG FRACTION INSPIRED OXYGEN 36; BG HCO3 ACT 21.5 mmol/L (22.0-26.0); BG METHEMOGLOBIN 0.5 % (0.0-1.5); BG OXYGEN SATURATION 92.1 % (92.0-98.5); BG OXYHEMOGLOBIN 91.3 % (94.0-97.0); BG PCO2 29.3 mmHg (35.0-45.0); BG PH 7.483 (7.350-7.450); BG PO2 65.4 mmHg (75.0-100.0); BG SAMPLE SITE RIGHT RADIAL; BG TOTAL HEMOGLOBIN 8.1 g/dL (12.0-18.0); BG VENT MODE NASAL CANNULA
[2020-10-27] MEDS: IPRATROPIUM/ALBUTEROL 0.5-3(2.5)MG/3ML NEB HHN SCH ×2 (17:00→20:28)
[2020-10-27 17:57] LABS: INR 1.2; PROTHROMBIN TIME 12.3 sec (9.6-11.0)
[2020-10-27 21:52] LABS: HEMATOCRIT 26.2 % (36.0-48.0); HEMOGLOBIN 9.2 g/dL (12.0-16.0)
[2020-10-28] VITALS (13 sets, daily range): BP systolic 126–154; BP diastolic 80–97
[2020-10-28] MEDS: PIPERACILLIN/TAZOBACTAM 3.375 G in DEXT 5% WATER 100 ML IV SCH ×5 (00:32→23:19)
[2020-10-28] MEDS: FUROSEMIDE 40MG/4ML VIAL IVP SCH (06:41)
[2020-10-28 07:04] LABS: BASOPHILS % 0.9 % (0.0-2.0); EOSINOPHILS % 1.8 % (0.0-5.0); HEMATOCRIT. 27.5 % (36.0-48.0); HEMOGLOBIN. 9.5 g/dL (12.0-16.0); LYMPHOCYTES % 12.1 % (20.0-50.0); MEAN CORPUSCULAR VOLUME 95.3 fL (81.0-99.0); MEAN PLATELET VOLUME 8.2 fl (7.4-10.4); MONOCYTES % 8.2 % (2.0-8.0); PLATELET 384 x1000/uL (130-400); RED BLOOD CELL COUNT 2.88 mill/uL (4.2-5.4); RED CELL DISTRIBUTION WIDTH 21.6 % (11.6-14.6)
[2020-10-28 07:07] LABS: CHLORIDE 106 mEq/L (98-107)
[2020-10-28 07:27] LABS: TOTAL IRON BINDING CAPACITY 155 ug/dL (250-450)
[2020-10-28 07:42] LABS: FOLIC ACID (FOLATE) SERUM > 20.00 ng/mL (>5.38)
[2020-10-28 07:48] LABS: VITAMIN B12 SERUM 276 pg/mL (211-911)
[2020-10-28] MEDS: OMEPRAZOLE 20MG CAPSULE EXTENDED RELEASE PO SCH (07:50)
[2020-10-28] MEDS: IPRATROPIUM/ALBUTEROL 0.5-3(2.5)MG/3ML NEB HHN SCH ×3 (07:51→23:44)
[2020-10-28] MEDS: DOCUSATE SODIUM 100MG CAPSULE PO SCH ×2 (09:00→17:00)
[2020-10-28 09:41] LABS: BG BASE EXCESS -0.2 mmol/L (-2.0-2.0); BG CARBOXYHEMOGLOBIN 0.9 % (0.5-1.5); BG DEOXYHEMOGLOBIN 4.9 % (0.0-5.0); BG FRACTION INSPIRED OXYGEN 36; BG HCO3 ACT 23.1 mmol/L (22.0-26.0); BG METHEMOGLOBIN 0.3 % (0.0-1.5); BG OXYHEMOGLOBIN 93.9 % (94.0-97.0); BG PCO2 32.9 mmHg (35.0-45.0); BG PH 7.465 (7.350-7.450); BG SAMPLE SITE RIGHT BRACHIAL; BG VENT MODE NASAL CANNULA
[2020-10-28] MEDS ORDERED: MAGNESIUM 4 G PREMIX 100 ML IV ONE (10:00)
[2020-10-28 10:29] LABS: INR 1.2; PROTHROMBIN TIME 12.4 sec (9.6-11.0)
[2020-10-28] MEDS ORDERED: MAGNESIUM 4 G PREMIX 100 ML IV NR (10:30)
[2020-10-28] MEDS: ASCORBIC ACID 500 MG TABLET PO SCH (11:08)
[2020-10-28] MEDS: MULTIVITAMINS,THER W-MINERALS TABLET PO SCH (11:08)
[2020-10-28] MEDS: FERROUS SULFATE 325MG TABLET PO SCH ×3 (11:08→17:36)
[2020-10-28] MEDS: THIAMINE HCL 100MG TABLET PO SCH (11:08)
[2020-10-28] MEDS: FOLIC ACID 1MG TABLET PO SCH (11:08)
[2020-10-28 13:06] LABS: FERRITIN 320 ng/mL (10-291)
[2020-10-28] MEDS: FUROSEMIDE 40MG/4ML VIAL IV SCH (14:37)
[2020-10-28] MEDS: ACETAMINOPHEN 325MG TABLET PO PRN (21:57)
[2020-10-29] VITALS (11 sets, daily range): BP systolic 104–130; BP diastolic 60–89
[2020-10-29] MEDS: PIPERACILLIN/TAZOBACTAM 3.375 G in DEXT 5% WATER 100 ML IV SCH ×4 (05:27→23:56)
[2020-10-29 05:55] LABS: EOSINOPHILS % 1.5 % (0.0-5.0); HEMATOCRIT. 27.7 % (36.0-48.0); HEMOGLOBIN. 9.3 g/dL (12.0-16.0); LYMPHOCYTES % 16.2 % (20.0-50.0); MEAN CORPUSCULAR HEMOGLOBIN 31.7 pg (28.0-32.0); MEAN CORPUSCULAR VOLUME 94.4 fL (81.0-99.0); MEAN PLATELET VOLUME 8.5 fl (7.4-10.4); MONOCYTES % 7.2 % (2.0-8.0); NEUTROPHILS % 74.1 % (40.0-76.0); PLATELET 368 x1000/uL (130-400); RED BLOOD CELL COUNT 2.94 mill/uL (4.2-5.4); RED CELL DISTRIBUTION WIDTH 21.4 % (11.6-14.6)
[2020-10-29] MEDS ORDERED: POTASSIUM CHLORIDE 20MEQ TABLET SR PO SCH ×2 (07:00→10:00)
[2020-10-29] MEDS: FERROUS SULFATE 325MG TABLET PO SCH ×3 (07:47→17:35)
[2020-10-29] MEDS: OMEPRAZOLE 20MG CAPSULE EXTENDED RELEASE PO SCH (07:47)
[2020-10-29] MEDS: IPRATROPIUM/ALBUTEROL 0.5-3(2.5)MG/3ML NEB HHN SCH ×2 (08:03→15:30)
[2020-10-29] MEDS: FUROSEMIDE 40MG/4ML VIAL IV SCH (09:00)
[2020-10-29] MEDS: THIAMINE HCL 100MG TABLET PO SCH (09:00)
[2020-10-29] MEDS: MULTIVITAMINS,THER W-MINERALS TABLET PO SCH (09:00)
[2020-10-29] MEDS: DOCUSATE SODIUM 100MG CAPSULE PO SCH ×2 (09:00→17:35)
[2020-10-29] MEDS: ASCORBIC ACID 500 MG TABLET PO SCH (09:00)
[2020-10-29] MEDS: FOLIC ACID 1MG TABLET PO SCH (09:00)
[2020-10-30] VITALS (11 sets, daily range): BP systolic 104–127; BP diastolic 63–81
[2020-10-30] MEDS: IPRATROPIUM/ALBUTEROL 0.5-3(2.5)MG/3ML NEB HHN SCH ×4 (00:19→21:35)
[2020-10-30] MEDS: PIPERACILLIN/TAZOBACTAM 3.375 G in DEXT 5% WATER 100 ML IV SCH ×3 (05:32→20:02)
[2020-10-30] MEDS: FOLIC ACID 1MG TABLET PO SCH (08:11)
[2020-10-30] MEDS: FUROSEMIDE 40MG/4ML VIAL IV SCH (08:11)
[2020-10-30] MEDS: FERROUS SULFATE 325MG TABLET PO SCH ×2 (08:12→12:19)
[2020-10-30] MEDS: ASCORBIC ACID 500 MG TABLET PO SCH (08:12)
[2020-10-30] MEDS: OMEPRAZOLE 20MG CAPSULE EXTENDED RELEASE PO SCH (08:12)
[2020-10-30] MEDS: THIAMINE HCL 100MG TABLET PO SCH (08:12)
[2020-10-30] MEDS: MULTIVITAMINS,THER W-MINERALS TABLET PO SCH (08:12)
[2020-10-30] MEDS: DOCUSATE SODIUM 100MG CAPSULE PO SCH ×3 (08:12→17:00)
[2020-10-31] VITALS: BP 119/79
[2020-10-31] MEDS: PIPERACILLIN/TAZOBACTAM 3.375 G in DEXT 5% WATER 100 ML IV SCH ×3 (01:29→11:59)
[2020-10-31 04:00] VITALS: BP 136/87
[2020-10-31 06:40] LABS: BASOPHILS % 1.2 % (0.0-2.0); EOSINOPHILS % 9.2 % (0.0-5.0); HEMATOCRIT. 28.1 % (36.0-48.0); HEMOGLOBIN. 9.3 g/dL (12.0-16.0); LYMPHOCYTES % 18.4 % (20.0-50.0); MEAN CORPUSCULAR VOLUME 96.4 fL (81.0-99.0); MEAN PLATELET VOLUME 8.3 fl (7.4-10.4); MONOCYTES % 9.2 % (2.0-8.0); PLATELET 356 x1000/uL (130-400); RED BLOOD CELL COUNT 2.91 mill/uL (4.2-5.4); RED CELL DISTRIBUTION WIDTH 20.3 % (11.6-14.6)
[2020-10-31] MEDS: IPRATROPIUM/ALBUTEROL 0.5-3(2.5)MG/3ML NEB HHN SCH ×2 (08:04→15:50)
[2020-10-31] MEDS: FERROUS SULFATE 325MG TABLET PO SCH ×3 (08:34→17:50)
[2020-10-31] MEDS: OMEPRAZOLE 20MG CAPSULE EXTENDED RELEASE PO SCH (08:34)
[2020-10-31 08:52] VITALS: BP 121/78
[2020-10-31] MEDS: THIAMINE HCL 100MG TABLET PO SCH (09:09)
[2020-10-31] MEDS: MULTIVITAMINS,THER W-MINERALS TABLET PO SCH (09:09)
[2020-10-31] MEDS: DOCUSATE SODIUM 100MG CAPSULE PO SCH ×2 (09:09→17:50)
[2020-10-31] MEDS: ASCORBIC ACID 500 MG TABLET PO SCH (09:09)
[2020-10-31] MEDS: FOLIC ACID 1MG TABLET PO SCH (09:09)
[2020-10-31] MEDS: FUROSEMIDE 40MG/4ML VIAL IV SCH (09:10)
[2020-10-31 11:47] VITALS: BP 119/81
[2020-10-31 16:19] VITALS: BP 122/81
[2020-10-31 20:00] VITALS: BP 120/75
[2020-11-01] VITALS: BP 120/75
[2020-11-01] MEDS: IPRATROPIUM/ALBUTEROL 0.5-3(2.5)MG/3ML NEB HHN SCH ×3 (01:48→16:18)
[2020-11-01 04:00] VITALS: BP 121/75
[2020-11-01 08:22] VITALS: BP 130/83
[2020-11-01] MEDS: DOCUSATE SODIUM 100MG CAPSULE PO SCH ×3 (08:40→17:00)
[2020-11-01] MEDS: FOLIC ACID 1MG TABLET PO SCH (08:40)
[2020-11-01] MEDS: FUROSEMIDE 40MG/4ML VIAL IV SCH (08:40)
[2020-11-01] MEDS: ASCORBIC ACID 500 MG TABLET PO SCH (08:40)
[2020-11-01] MEDS: FERROUS SULFATE 325MG TABLET PO SCH ×3 (08:40→17:08)
[2020-11-01] MEDS: OMEPRAZOLE 20MG CAPSULE EXTENDED RELEASE PO SCH (08:40)
[2020-11-01] MEDS: THIAMINE HCL 100MG TABLET PO SCH (08:40)
[2020-11-01] MEDS: MULTIVITAMINS,THER W-MINERALS TABLET PO SCH (08:40)
[2020-11-01 11:49] VITALS: BP 116/84
[2020-11-01 15:47] VITALS: BP 118/74
[2020-11-01 20:00] VITALS: BP 125/85
[2020-11-02] VITALS: BP 131/79
[2020-11-02] MEDS: IPRATROPIUM/ALBUTEROL 0.5-3(2.5)MG/3ML NEB HHN SCH ×3 (01:52→16:50)
[2020-11-02 04:00] VITALS: BP 123/73
[2020-11-02] MEDS: OMEPRAZOLE 20MG CAPSULE EXTENDED RELEASE PO SCH (06:00)
[2020-11-02 08:27] VITALS: BP 126/81
[2020-11-02] MEDS: DOCUSATE SODIUM 100MG CAPSULE PO SCH ×3 (09:00→17:00)
[2020-11-02] MEDS: ASCORBIC ACID 500 MG TABLET PO SCH (10:15)
[2020-11-02] MEDS: FUROSEMIDE 40MG/4ML VIAL IV SCH (10:15)
[2020-11-02] MEDS: MULTIVITAMINS,THER W-MINERALS TABLET PO SCH (10:15)
[2020-11-02] MEDS: FOLIC ACID 1MG TABLET PO SCH (10:15)
[2020-11-02] MEDS: THIAMINE HCL 100MG TABLET PO SCH (10:15)
[2020-11-02] MEDS: FERROUS SULFATE 325MG TABLET PO SCH ×3 (10:20→19:33)
[2020-11-02 12:09] VITALS: BP 119/81
[2020-11-02 15:48] VITALS: BP 115/60
[2020-11-02] MEDS ORDERED: MAGNESIUM OXIDE 400MG TABLET PO SCH (16:15)
[2020-11-02 18:44] VITALS: BP 125/79
== END 2020-11-02 19:55 | disposition home health service (06) | DRG 133 ==
LOC: ER 07:58 → 7WST 10:45 → EDBEDREQSVC 12:06 → ENRESERV 12:07 → 5EST 10-27 09:21 → 8WST 10-30 16:35
PROVIDERS: ADMIT Internal Medicine; ATTEND Internal Medicine
PROC: 5A09357 Assistance with Respiratory Ventilation, Less than 24 Consecutive Hours, Continuous Positive Airway Pressure (ICD-10-PCS; 2020-10-26)
PROC: 30233N1 Transfusion of Nonautologous Red Blood Cells into Peripheral Vein, Percutaneous Approach (ICD-10-PCS; principal; 2020-10-27)
DX: J96.01 Acute respiratory failure with hypoxia (principal); I50.33 Acute on chronic diastolic (congestive) heart failure; E43 Unspecified severe protein-calorie malnutrition; J18.9 Pneumonia, unspecified organism; E87.8 Other disorders of electrolyte and fluid balance, not elsewhere classified; I08.1 Rheumatic disorders of both mitral and tricuspid valves; E83.42 Hypomagnesemia; I11.0 Hypertensive heart disease with heart failure; I27.29 Other secondary pulmonary hypertension; A59.9 Trichomoniasis, unspecified; D53.9 Nutritional anemia, unspecified; E87.6 Hypokalemia; K76.0 Fatty (change of) liver, not elsewhere classified; R74.01 Elevation of levels of liver transaminase levels; Z20.822 Contact with and (suspected) exposure to COVID-19; F10.20 Alcohol dependence, uncomplicated; R94.31 Abnormal electrocardiogram [ECG] [EKG]; R41.0 Disorientation, unspecified; Z68.28 Body mass index [BMI] 28.0-28.9, adult; Z79.2 Long term (current) use of antibiotics; Z79.82 Long term (current) use of aspirin; Z79.899 Other long term (current) drug therapy; Z87.440 Personal history of urinary (tract) infections
CPT/HCPCS: 36415; 36600; 71045; 80048; 80053; 80076; 80305; 81003; 82140; 82248; 82270; 82375; 82607; 82728; 82746; 82805; 83540; 83550; 83605; 83735; 83880; 84484; 85014; 85018; 85025; 85044; 86850; 86900; 86920; 93005; 94640; 94660; 97116; 97162; 97530; 99291; J1940; J2543; J3370; J3475; J7040; J7060; P9016; U0003; U0005

== ENCOUNTER 2022-08-13 19:18 | Emergency (ER) | payer MEDICAID, OTHER ==
[~2022-08-13] VITALS: Ht 160 cm; Wt 84.0 kg
[~2022-08-13 19:18] MED LIST changes: -ALLO100T MT; -CELE200C PO; +FURO-151 MT; -FURO40TA5 PO; -HYDR12.54 MT; -LEVO500T89 MT; -LISI20TA31 PO; +METO25TA6 MT
[2022-08-13 19:35] VITALS: BP 181/105
[2022-08-15] MEDS ORDERED: POTA-205 PO (01:02)
[2022-08-15] MEDS ORDERED: BENA10TA74 MT (01:02)
[2022-08-15] MEDS ORDERED: APIX2.5T PO (01:02)
[2022-08-15] MEDS ORDERED: ATOR40TA70 MT (01:02)
[2022-08-15] MEDS ORDERED: HYDR-4135 MT (01:02)
[2022-08-15] MEDS ORDERED: ISOS40TA17 PO (01:02)
[2022-08-15] MEDS ORDERED: ASCO500C18 MT (01:02)
[2022-08-15] MEDS ORDERED: PANT40TA51 PO (01:02)
[2022-08-15] MEDS ORDERED: CARV25TA47 MT (01:02)
[2022-08-15] MEDS ORDERED: THIA100T88 PO (01:03)
== END 2022-08-13 22:00 | disposition left against medical advice (07) ==
LOC: ER 19:18
DX: Z53.21 Procedure and treatment not carried out due to patient leaving prior to being seen by health care provider (principal); I49.9 Cardiac arrhythmia, unspecified
CPT/HCPCS: 93005; 99281

== ENCOUNTER 2022-12-28 10:18 | Inpatient (IN) | payer MEDICAID, OTHER ==
[~2022-12-28] VITALS: Ht 160 cm; Wt 86.2 kg
[~2022-12-28 10:18] MED LIST changes: +APIX2.5T PO; +ASCO500C18 MT; +ATOR40TA70 MT; +BENA10TA74 MT; +CARV25TA47 MT; +HYDR-4135 MT; +ISOS40TA17 PO; +PANT40TA51 PO; +POTA-205 PO; +THIA100T88 PO
[2022-12-28] MEDS ORDERED: CEFEPIME 2,000 MG in DEXT 5% WATER 100 ML IV ONE (10:45)
[2022-12-28 11:20] LABS: BASOPHILS % 0.5 % (0.0-2.0); EOSINOPHILS % 0.2 % (0.0-5.0); HEMOGLOBIN. 7.6 g/dL (12.0-16.0); LYMPHOCYTES % 11.7 % (20.0-50.0); MEAN CORPUSCULAR HEMOGLOBIN 37.2 pg (28.0-32.0); MEAN PLATELET VOLUME 7.9 fl (7.4-10.4); NEUTROPHILS % 76.6 % (40.0-76.0); PLATELET 256 x1000/uL (130-400); RED BLOOD CELL COUNT 2.04 mill/uL (4.2-5.4); RED CELL DISTRIBUTION WIDTH 16.4 % (11.6-14.6)
[2022-12-28 11:27] LABS: CHLORIDE 105 mEq/L (98-107)
[2022-12-28 11:28] LABS: PROTHROMBIN TIME 11.2 sec (9.6-11.0)
[2022-12-28] MEDS ORDERED: FUROSEMIDE 40MG/4ML VIAL IVP ONE (13:45)
[2022-12-28] MEDS ORDERED: MORPHINE SULFATE 4 MG/ML CPJ (NOT FOR IM USE) IV ONE (14:00)
[2022-12-28 23:49] VITALS: BP 159/80; PULSE 81; RESP 18; TEMP 100.1
[2022-12-29] VITALS: BP 122/81; PULSE 81; RESP 18; TEMP 101.7
[2022-12-29] MEDS ORDERED: ASPI-1497 MT (00:16)
[2022-12-29] MEDS ORDERED: *PATIENT'S OWN MEDICATION STORAGE XX SCH (03:30)
[2022-12-29] MEDS ORDERED: IPRATROPIUM/ALBUTEROL 0.5-3(2.5)MG/3ML NEB HHN PRN (07:15)
[2022-12-29] MEDS ORDERED: CLONIDINE 0.1MG TABLET PO PRN (07:15)
[2022-12-29] MEDS ORDERED: HYDROCODONE/ACETAMINOPHEN 5/325MG TABLET PO PRN (07:15)
[2022-12-29] MEDS ORDERED: LORAZEPAM 0.5MG TABLET PO PRN (07:15)
[2022-12-29] MEDS ORDERED: ONDANSETRON HCL 4MG/2ML INJ IV PRN (07:15)
[2022-12-29] MEDS ORDERED: ACETAMINOPHEN 325MG TABLET PO PRN (07:15)
[2022-12-29] MEDS ORDERED: DOCUSATE SODIUM 100MG CAPSULE PO PRN (07:15)
[2022-12-29] MEDS ORDERED: NALOXONE HCL 0.4MG/ML VIAL IV PRN (07:30)
[2022-12-29 08:00] VITALS: BP 152/82; PULSE 98; RESP 20; TEMP 99.5
[2022-12-29] MEDS: MULTIVITAMINS,THER W-MINERALS TABLET PO SCH (11:04)
[2022-12-29] MEDS: FOLIC ACID 1MG TABLET PO SCH (11:04)
[2022-12-29] MEDS: THIAMINE HCL 100MG TABLET PO SCH (11:04)
[2022-12-29 11:56] LABS: FERRITIN 487 ng/mL (10-291)
[2022-12-29 12:00] VITALS: BP 128/83; PULSE 99; RESP 20; TEMP 97.9
[2022-12-29] MEDS ORDERED: FOLIC ACID 1MG TABLET PO SCH (12:00)
[2022-12-29] MEDS ORDERED: THIAMINE HCL 100MG TABLET PO SCH (12:00)
[2022-12-29 12:08] LABS: FOLIC ACID (FOLATE) SERUM >20 ng/mL ng/mL (>5.38); VITAMIN B12 SERUM 504 pg/mL (211-911)
[2022-12-29] MEDS: PANTOPRAZOLE 40MG DR TABLET PO SCH ×2 (12:23→20:20)
[2022-12-29] MEDS: METOPROLOL TARTRATE 25MG TABLET PO SCH ×2 (12:23→20:20)
[2022-12-29] MEDS: HYDRALAZINE HCL 50MG TABLET PO SCH ×2 (12:24→16:55)
[2022-12-29] MEDS: FUROSEMIDE 40MG TABLET PO SCH (12:24)
[2022-12-29] MEDS: ASPIRIN 81MG EC TABLET PO SCH (12:24)
[2022-12-29] MEDS: POTASSIUM CHLORIDE 20MEQ TABLET SR PO SCH (12:24)
[2022-12-29] MEDS: ASCORBIC ACID 500 MG TABLET PO SCH (12:24)
[2022-12-29 16:00] VITALS: BP 138/78; PULSE 107; RESP 20; TEMP 101.7
[2022-12-29] MEDS: APIXABAN 2.5 MG TABLET PO SCH (16:55)
[2022-12-29] MEDS: ISOSORBIDE DINITRATE 20MG TABLET PO SCH (16:56)
[2022-12-29] MEDS: MORPHINE SULFATE 2 MG/ML CPJ (NOT FOR IM USE) IV PRN (16:57)
[2022-12-29] MEDS: ACETAMINOPHEN 325MG TABLET PO PRN (19:01)
[2022-12-29 20:00] VITALS: BP 107/54; PULSE 105; RESP 16; RESP 18; TEMP 102.2
[2022-12-29] MEDS: ATORVASTATIN CALCIUM 40MG TABLET PO SCH (20:20)
[2022-12-29 22:00] VITALS: TEMP 99.7
[2022-12-30] VITALS: BP 131/80; PULSE 78; RESP 18; TEMP 97.9
[2022-12-30 04:10] VITALS: TEMP 103.6
[2022-12-30] MEDS: MORPHINE SULFATE 2 MG/ML CPJ (NOT FOR IM USE) IV PRN (05:38)
[2022-12-30] MEDS: ACETAMINOPHEN 325MG TABLET PO PRN (05:42)
[2022-12-30 06:45] VITALS: TEMP 100.9
[2022-12-30] MEDS: PANTOPRAZOLE 40MG DR TABLET PO SCH ×2 (06:46→22:09)
[2022-12-30 06:53] LABS: BASOPHILS % 0.3 % (0.0-2.0); EOSINOPHILS % 0.3 % (0.0-5.0); LYMPHOCYTES % 14.9 % (20.0-50.0); MEAN CORPUSCULAR HEMOGLOBIN 36.7 pg (28.0-32.0); MEAN CORPUSCULAR VOLUME 107.6 fL (81.0-99.0); MEAN PLATELET VOLUME 8.1 fl (7.4-10.4); MONOCYTES % 11.3 % (2.0-8.0); NEUTROPHILS % 73.2 % (40.0-76.0); PLATELET 306 x1000/uL (130-400); RED BLOOD CELL COUNT 1.89 mill/uL (4.2-5.4); RED CELL DISTRIBUTION WIDTH 16.8 % (11.6-14.6)
[2022-12-30 07:03] LABS: HEMATOCRIT. 20.3 % (36.0-48.0); HEMOGLOBIN. 6.9 g/dL (12.0-16.0)
[2022-12-30 08:00] VITALS: BP 138/78; PULSE 97; RESP 20; TEMP 96.1
[2022-12-30] MEDS: APIXABAN 2.5 MG TABLET PO SCH (08:14)
[2022-12-30] MEDS: ASPIRIN 81MG EC TABLET PO SCH (08:14)
[2022-12-30] MEDS: MULTIVITAMINS,THER W-MINERALS TABLET PO SCH (10:36)
[2022-12-30] MEDS: ASCORBIC ACID 500 MG TABLET PO SCH (10:36)
[2022-12-30] MEDS: ISOSORBIDE DINITRATE 20MG TABLET PO SCH ×2 (10:36→16:59)
[2022-12-30] MEDS: POTASSIUM CHLORIDE 20MEQ TABLET SR PO SCH (10:36)
[2022-12-30] MEDS: THIAMINE HCL 100MG TABLET PO SCH (10:36)
[2022-12-30] MEDS: METOPROLOL TARTRATE 25MG TABLET PO SCH ×2 (10:37→22:10)
[2022-12-30] MEDS: HYDRALAZINE HCL 50MG TABLET PO SCH ×2 (10:37→16:59)
[2022-12-30] MEDS: FUROSEMIDE 40MG TABLET PO SCH (10:37)
[2022-12-30] MEDS: FOLIC ACID 1MG TABLET PO SCH (10:37)
[2022-12-30 11:52] LABS: MEAN CORPUSCULAR HEMOGLOBIN 36.5 pg (28.0-32.0); MEAN CORPUSCULAR VOLUME 106.9 fL (81.0-99.0); PLATELET 357 x1000/uL (130-400); RED BLOOD CELL COUNT 1.89 mill/uL (4.2-5.4); RED CELL DISTRIBUTION WIDTH 17.1 % (11.6-14.6)
[2022-12-30 11:57] LABS: HEMATOCRIT 20.2 % (36.0-48.0); HEMOGLOBIN 6.9 g/dL (12.0-16.0)
[2022-12-30 12:00] VITALS: BP 137/60; PULSE 95; RESP 19; TEMP 96
[2022-12-30] MEDS ORDERED: SODIUM BICARBONATE 4% (2.4MEQ) 5ML VIAL IV ONE (14:17)
[2022-12-30 15:21] LABS: TOTAL IRON BINDING CAPACITY 145 ug/dL (250-450)
[2022-12-30 16:00] VITALS: BP 140/62; PULSE 80; RESP 20; TEMP 96.3
[2022-12-30] MEDS: HYDROCODONE/ACETAMINOPHEN 10/325MG TABLET PO PRN (17:02)
[2022-12-30] MEDS ORDERED: PREDNISONE 20MG TABLET PO SCH (21:00)
[2022-12-30] MEDS: ATORVASTATIN CALCIUM 40MG TABLET PO SCH (22:09)
[2022-12-30] MEDS: HYDROXYCHLOROQUINE SULFATE 200MG TABLET PO SCH (22:10)
[2022-12-31] VITALS (9 sets, daily range): BP systolic 117–150; BP diastolic 67–88; PULSE 87–104; RESP 18–20; TEMP 97.9–99.1
[2022-12-31 07:45] LABS: HEMATOCRIT. 23.3 % (36.0-48.0); HEMOGLOBIN. 8.2 g/dL (12.0-16.0); MEAN CORPUSCULAR HEMOGLOBIN 35.2 pg (28.0-32.0); MEAN PLATELET VOLUME 7.9 fl (7.4-10.4); PLATELET 356 x1000/uL (130-400); RED BLOOD CELL COUNT 2.33 mill/uL (4.2-5.4); RED CELL DISTRIBUTION WIDTH 21.1 % (11.6-14.6)
[2022-12-31 08:54] LABS: BASOPHILS % 0.1 % (0.0-2.0); EOSINOPHILS % 0.1 % (0.0-5.0); LYMPHOCYTES % 6.5 % (20.0-50.0); NEUTROPHILS % 89.3 % (40.0-76.0)
[2022-12-31] MEDS: APIXABAN 2.5 MG TABLET PO SCH ×2 (11:03→17:29)
[2022-12-31] MEDS: MULTIVITAMINS,THER W-MINERALS TABLET PO SCH (11:03)
[2022-12-31] MEDS: HYDRALAZINE HCL 50MG TABLET PO SCH ×2 (11:04→17:29)
[2022-12-31] MEDS: PANTOPRAZOLE 40MG DR TABLET PO SCH ×2 (11:04→21:30)
[2022-12-31] MEDS: ASPIRIN 81MG EC TABLET PO SCH (11:04)
[2022-12-31] MEDS: ISOSORBIDE DINITRATE 20MG TABLET PO SCH ×2 (11:04→17:29)
[2022-12-31] MEDS: METOPROLOL TARTRATE 25MG TABLET PO SCH ×2 (11:04→21:32)
[2022-12-31] MEDS: THIAMINE HCL 100MG TABLET PO SCH (11:04)
[2022-12-31] MEDS: FOLIC ACID 1MG TABLET PO SCH (11:04)
[2022-12-31] MEDS: ASCORBIC ACID 500 MG TABLET PO SCH (11:04)
[2022-12-31] MEDS: FUROSEMIDE 40MG TABLET PO SCH (11:05)
[2022-12-31] MEDS: POTASSIUM CHLORIDE 20MEQ TABLET SR PO SCH (11:05)
[2022-12-31] MEDS: HYDROXYCHLOROQUINE SULFATE 200MG TABLET PO SCH (11:05)
[2022-12-31] MEDS: PREDNISONE 20MG TABLET PO SCH ×2 (11:17→17:29)
[2022-12-31] MEDS: HYDROCODONE/ACETAMINOPHEN 10/325MG TABLET PO PRN (11:22)
[2022-12-31] MEDS ORDERED: MAGNESIUM 1 G PREMIX 100 ML IV SCH (12:00)
[2022-12-31 14:29] LABS: PLATELET ESTIMATE NORMAL
[2022-12-31] MEDS: BUPROPION HCL 100MG SR TABLET PO SCH (21:29)
[2022-12-31] MEDS: ATORVASTATIN CALCIUM 40MG TABLET PO SCH (21:32)
[2023-01-01] VITALS: BP 152/82; PULSE 83; RESP 18; TEMP 98
[2023-01-01 08:00] VITALS: BP 155/90; PULSE 77; RESP 20; TEMP 97.9
[2023-01-01 09:12] LABS: G6PD RBC 2.42 x10E6/uL (3.77-5.28)
[2023-01-01] MEDS: BUPROPION HCL 100MG SR TABLET PO SCH (09:26)
[2023-01-01] MEDS: PANTOPRAZOLE 40MG DR TABLET PO SCH (09:26)
[2023-01-01] MEDS: METOPROLOL TARTRATE 25MG TABLET PO SCH (09:27)
[2023-01-01] MEDS: ASPIRIN 81MG EC TABLET PO SCH (09:27)
[2023-01-01] MEDS: MULTIVITAMINS,THER W-MINERALS TABLET PO SCH (09:27)
[2023-01-01] MEDS: PREDNISONE 20MG TABLET PO SCH ×2 (09:27→17:17)
[2023-01-01] MEDS: ASCORBIC ACID 500 MG TABLET PO SCH (09:27)
[2023-01-01] MEDS: THIAMINE HCL 100MG TABLET PO SCH (09:27)
[2023-01-01] MEDS: ISOSORBIDE DINITRATE 20MG TABLET PO SCH ×2 (09:28→17:17)
[2023-01-01] MEDS: FOLIC ACID 1MG TABLET PO SCH (09:28)
[2023-01-01] MEDS: APIXABAN 2.5 MG TABLET PO SCH ×2 (09:28→17:17)
[2023-01-01] MEDS: HYDRALAZINE HCL 50MG TABLET PO SCH ×2 (09:28→17:17)
[2023-01-01] MEDS: FUROSEMIDE 40MG TABLET PO SCH (09:28)
[2023-01-01] MEDS: POTASSIUM CHLORIDE 20MEQ TABLET SR PO SCH (09:28)
[2023-01-01] MEDS: HYDROXYCHLOROQUINE SULFATE 200MG TABLET PO SCH (09:29)
[2023-01-01 12:00] VITALS: BP 146/83; PULSE 63; RESP 20; TEMP 97.9
[2023-01-01 13:12] LABS: RNP ANTIBODY < 0.2 AI (0.0-0.9)
[2023-01-01] MEDS ORDERED: P20 PO (14:49)
[2023-01-01] MEDS ORDERED: HYDR-4009 PO (14:49)
[2023-01-01] MEDS ORDERED: HYDR200T35 PO (14:49)
[2023-01-01] MEDS ORDERED: BUPR-113 PO (14:49)
[2023-01-01] MEDS ORDERED: FOLI-43 PO (14:49)
[2023-01-01] MEDS ORDERED: FOLIC ACID 1MG TABLET PO SCH (15:30)
[2023-01-01 16:00] VITALS: BP 149/84; PULSE 84; RESP 20; TEMP 98.4
[2023-01-01] MEDS ORDERED: METHOTREXATE SODIUM/PF 50 MG/2 ML VIAL IM NR (16:00)
[2023-01-01 16:11] VITALS: BP 138/89; PULSE 77; TEMP 98.3; O2SAT 97
[2023-01-01 17:17] VITALS: PULSE 77
[2023-01-02 04:00] VITALS: RESP 16
[2023-01-02 04:32] LABS: ANA IFA Negative (.)
[2023-01-02 10:10] LABS: ALDOLASE 5.4 U/L (3.3-10.3)
[2023-01-02 17:07] LABS: ANTI-MYELOPEROXIDASE AB < 0.2 units (0.0-0.9); ANTI-PROTEINASE 3 ABS < 0.2 units (0.0-0.9); GLOMERULAR BASEMENT MEMB AB < 0 units (0.0-0.9)
[2023-01-03 09:10] LABS: ANGIOTENSION CONVERTING ENZYME 13 U/L (14-82)
[2023-01-03 10:07] LABS: ANTI-JO 1 ABS <0.2 AI (0.0-0.9)
[2023-01-03 15:10] LABS: ATYPICAL P-ANCA <1:20 titer (Neg:<1:20); CYTOPLASMIC C-ANCA <1:20 titer (Neg:<1:20); PERINUCLEAR P-ANCA <1:20 titer (Neg:<1:20)
[2023-01-07 17:09] LABS: G6PD QUANTITATIVE 507 (127-427)
[2023-01-08] MEDS ORDERED: METHOTREXATE SODIUM/PF 50 MG/2 ML VIAL IM SCH (09:00)
[2023-01-08 13:06] LABS: HLA B27 DISEASE ASSOCIATION Negative (.)
== END 2023-01-01 18:45 | disposition home or self-care (01) | DRG 203 ==
LOC: ER 10:18 → 6WST 23:03
PROVIDERS: ADMIT Internal Medicine; ATTEND Internal Medicine
PROC: 0S9C3ZZ Drainage of Right Knee Joint, Percutaneous Approach (ICD-10-PCS; principal; 2022-12-30)
PROC: 30233N1 Transfusion of Nonautologous Red Blood Cells into Peripheral Vein, Percutaneous Approach (ICD-10-PCS; 2022-12-31)
DX: M94.0 Chondrocostal junction syndrome [Tietze] (principal); I13.0 Hypertensive heart and chronic kidney disease with heart failure and stage 1 through stage 4 chronic kidney disease, or unspecified chronic kidney disease; I50.32 Chronic diastolic (congestive) heart failure; M19.022 Primary osteoarthritis, left elbow; D53.9 Nutritional anemia, unspecified; E87.6 Hypokalemia; I34.0 Nonrheumatic mitral (valve) insufficiency; L03.90 Cellulitis, unspecified; M85.80 Other specified disorders of bone density and structure, unspecified site; I25.10 Atherosclerotic heart disease of native coronary artery without angina pectoris; R79.89 Other specified abnormal findings of blood chemistry; R03.0 Elevated blood-pressure reading, without diagnosis of hypertension; N18.9 Chronic kidney disease, unspecified; F32.A Depression, unspecified; M06.9 Rheumatoid arthritis, unspecified; Z79.01 Long term (current) use of anticoagulants; Z79.899 Other long term (current) drug therapy; Z95.810 Presence of automatic (implantable) cardiac defibrillator
CPT/HCPCS: 20611; 36415; 71045; 72100; 73080; 73130; 73630; 73650; 80048; 80053; 82085; 82164; 82550; 82607; 82728; 82746; 82955; 83516; 83520; 83540; 83550; 83735; 83880; 84145; 84484; 84550; 85025; 85027; 85041; 85044; 85651; 86160; 86225; 86235; 86256; 86431; 86850; 86880; 86900; 86920; 89060; 93005; 93971; 97162; 99291; J0692; J1940; J2270; J3475; J3490; J7060; J7512; J9260; P9016